=== PATIENT | female | born 1995 | race Caucasian/White ===

== ENCOUNTER 2024-12-29 12:04 | Outpatient (CLI) | payer BC, SELFPAY | END 2024-12-29 12:05 | disposition home or self-care (01) | PROVIDERS: PCP Family Medicine; Visit Provider Family Medicine | DX: R53.83 Other fatigue (principal); Z30.9 Encounter for contraceptive management, unspecified; Z86.79 Personal history of other diseases of the circulatory system | CPT/HCPCS: 80053; 82306; 84443 ==

== ENCOUNTER 2025-02-24 13:40 | Outpatient (CLI) | payer BC, SELFPAY | END 2025-02-24 13:41 | disposition home or self-care (01) | LOC: NFLDREF 03-02 14:50 | PROVIDERS: PCP Family Medicine; Referring Provider Family Medicine; Visit Provider Family Medicine | DX: Z91.89 Other specified personal risk factors, not elsewhere classified (principal) | CPT/HCPCS: 80074; 86703 ==